=== PATIENT | male | born 1955 | race Caucasian/White ===

== ENCOUNTER 2016-07-23 08:22 | Day surgery (SDC) | payer OTHER, BC ==
[2016-07-23] MEDS ORDERED: Iodixanol 320 MG/ML 100 ML BOTTLE IV ONE (09:57)
[2016-07-23] MEDS ORDERED: Midazolam 2 MG/2 ML VIAL ONE (09:58)
[2016-07-23 10:47] VITALS: BMI 23.3
--- NOTE | 2016-07-23 11:32 | CARDCATH ---
PROCEDURE DATE: 07/23/2016 The patient is a 61-year-old male who has a history of COPD, sleep apnea, with diagnosis of pulmonary TB in November of last year, currently finishing his anti-TB medications. The patient is known to hav e aortic valve disease, but does not recall any history of rheumatic heart disease. The patient pres ented to [facility] because of chest pain. Echocardiographic study was suggestive of severe aortic stenosis. Cardiac catheterization was recommended. Procedure and its risks fully explained to the p atient who understood them and agreed for the procedure. PROCEDURE: Left and right coronary angiography were performed with 6-Qatari JL4 and JR Cabrera diag nostic catheter. Aortogram was performed with 6-Qatari pigtail catheter and left ventriculogram was performed with a 6-Qatari AR1 diagnostic catheter. Right iliofemoral angiography was performed and 6 -Qatari Angio-Seal was deployed. Adequate hemostasis was achieved. Hemodynamics, simultaneous gradi ent of 20 mmHg was obtained across the aortic valve. ANGIOGRAPHIC FINDINGS: Selective injection of left coronary artery revealed left main to be a normal vessel, left main bifurcated into medium sized LAD, medium sized circumflex artery. The entire left coronary circulation with angiographic unremarkable. Selective injection of right coronary artery r evealed a large caliber dominant vessel that was angiographically unremarkable. Left ventriculogram performed in RAMÍREZ projection revealed normal wall motion. Ejection fraction estimated at 55%. Aortog amairani performed in FAUSTINA projection revealed calcific aortic valve, moderate aortic insufficiency. CONCLUSION: Moderate aortic insufficiency and moderate aortic stenosis. RECOMMENDATIONS: Continue current medical management. The case will be consulted with the cardiotho racic surgeon, Dr. Ruby, whom I will ask to review the angiographic as well as hemodynamic findin gs prior to considering an aortic valve replacement. Antonio Nathan MD cc: [id number] TT: 07/23/2016 11:31:38 tommy
== END 2016-07-23 15:00 | disposition short-term general hospital (02) ==
LOC: C.CATHLAB 08:22
PROVIDERS: ATTEND Specialist
DX: I35.2 Nonrheumatic aortic (valve) stenosis with insufficiency (principal); J44.9 Chronic obstructive pulmonary disease, unspecified; G47.30 Sleep apnea, unspecified; A15.0 Tuberculosis of lung
CPT/HCPCS: 93458; 93567; C1729; C1760; C1766; C1769; C1887; J1644; J2250; Q9967